=== PATIENT | male | born 1995 | race African-American/Black ===

== ENCOUNTER 2019-11-27 17:53 | Emergency (ER) | payer BC, SELFPAY ==
--- NOTE | 2019-11-27 20:38 | EDPHYS ---
Physician Documentation [facility] Name: Robbie Quiles Age: 24 yrs Sex: Male : 1995 Arrival Date: 11/27/2019 Time: 17:56 Bed 15 Private MD: ED Physician Gregory Osorio HPI: 11/26 20:03 This 24 yrs old Black Male presents to ER via Ambulatory with complaints of Headache. victor m 20:03 The patient complains of pain to the top of head, left frontal area, left side of the victor m back of head, right frontal area and right side of the back of head. The patient describes the headache as aching. Onset: The symptoms/episode began/occurred 3 day(s) ago. Associated signs and symptoms: The patient has no apparent associated signs or symptoms. Severity of symptoms: At its worst the pain was mild, in the emergency department the pain is unchanged. Headache History: The patient has had previous headaches and this one is similar to previous episodes. The symptoms are alleviated by nothing. the symptoms are aggravated by nothing. The patient has experienced similar episodes in the past, several times, hx of concussion, football injury, had swelling of the brain. Historical: - Allergies: 18:09 No Known Allergies; ph - Home Meds: 18:09 None [Active]; ph - PMHx: 18:09 None; ph - Immunization history:: Adult Immunizations unknown. - Social history:: Smoking status: Patient denies any tobacco usage or history of. Patient uses street drugs, marijuana. - Family history:: not pertinent. ROS: 20:03 Constitutional: Negative for fever, chills, and weight loss, Eyes: Negative for injury, victor m pain, redness, and discharge, ENT: Negative for injury, pain, and discharge, Neck: Negative for injury, pain, and swelling, Cardiovascular: Negative for chest pain, palpitations, and edema, Respiratory: Negative for shortness of breath, cough, wheezing, and pleuritic chest pain, Abdomen/GI: Negative for abdominal pain, nausea, vomiting, diarrhea, and constipation, Back: Negative for injury and pain, : Negative for injury, bleeding, discharge, and swelling, MS/Extremity: Negative for injury and deformity, Skin: Negative for injury, rash, and discoloration, Psych: Negative for depression, anxiety, suicide ideation, homicidal ideation, and hallucinations, Allergy/Immunology: Negative for hives, rash, and allergies, Endocrine: Negative for neck swelling, polydipsia, polyuria, polyphagia, and marked weight changes, Hematologic/Lymphatic: Negative for swollen nodes, abnormal bleeding, and unusual bruising. 20:03 Neuro: Positive for headache. Exam: 20:03 Constitutional: This is a well developed, well nourished patient who is awake, alert, victor m and in no acute distress. Head/Face: Normocephalic, atraumatic. Eyes: Pupils equal round and reactive to light, extra-ocular motions intact. Lids and lashes normal. Conjunctiva and sclera are non-icteric and not injected. Cornea within normal limits. Periorbital areas with no swelling, redness, or edema. ENT: Nares patent. No nasal discharge, no septal abnormalities noted. Tympanic membranes are normal and external auditory canals are clear. Oropharynx with no redness, swelling, or masses, exudates, or evidence of obstruction, uvula midline. Mucous membranes moist. Neck: Trachea midline, no thyromegaly or masses palpated, and no cervical lymphadenopathy. Supple, full range of motion without nuchal rigidity, or vertebral point tenderness. No Meningismus. Chest/axilla: Normal chest wall appearance and motion. Nontender with no deformity. No lesions are appreciated. Cardiovascular: Regular rate and rhythm with a normal S1 and S2. No gallops, murmurs, or rubs. Normal PMI, no JVD. No pulse deficits. Respiratory: Lungs have equal breath sounds bilaterally, clear to auscultation and percussion. No rales, rhonchi or wheezes noted. No increased work of breathing, no retractions or nasal flaring. Abdomen/GI: Soft, non-tender, with normal bowel sounds. No distension or tympany. No guarding or rebound. No evidence of tenderness throughout. Back: No spinal tenderness. No costovertebral tenderness. Full range of motion. Male : Normal genitalia with no discharge or lesions. Skin: Warm, dry with normal turgor. Normal color with no rashes, no lesions, and no evidence of cellulitis. MS/ Extremity: Pulses equal, no cyanosis. Neurovascular intact. Full, normal range of motion. Psych: Awake, alert, with orientation to person, place and time. Behavior, mood, and affect are within normal limits. 20:03 Neck: Exam negative for acute changes, ROM/movement: no acute changes, Meningeal signs: are not present, Kernig's sign is negative, Brudzinski's sign is negative. 20:03 Neuro: Exam negative for acute changes, Orientation: is normal, appropriate for stated age, no acute changes, Mentation: is normal, appropriate for stated age, no acute changes, Memory: is normal, appropriate for stated age, no acute changes, Cranial nerves: grossly normal, is grossly normal based on the patient's age, no acute changes, Cerebellar function: is grossly normal, is grossly normal based on the patient's age, no acute changes, Motor: is normal, is grossly normal based on the patient's age, no acute changes, moves all fours, Sensation: is normal, appropriate no acute changes, Gait: is steady, Deep tendon reflexes are 2+ (normal) in the bilateral brachioradialis, bicep, tricep and patellar and Achilles tendons, Babinski testing is normal, seizure activity, is not displayed by the patient. Vital Signs: 18:05 BP 149 / 89; Pulse 94; Resp 18; Temp 98.2; Pulse Ox 99% on R/A; Weight 180.08 kg; ph Height 6 ft. 6 in. (198.12 cm); Pain 6/10; 20:00 BP 131 / 79; Pulse 60; Resp 18; Pulse Ox 98% on R/A; wh 21:00 BP 127 / 76; Pulse 57; Resp 18; Pulse Ox 100% on R/A; wh 18:05 Body Mass Index 45.88 (180.08 kg, 198.12 cm) ph NIH Stroke Scale Scores: 20:03 NIHSS Score: 0 victor m [place] Coma Score: 20:07 Eye Response: spontaneous(4). Verbal Response: oriented(5). Motor Response: obeys [facility] commands(6). Total: 15. MDM: 19:10 Patient medically screened. [facility] 20:06 Data reviewed: vital signs, nurses notes, radiologic studies, CT scan. [facility] 20:07 Differential diagnosis: intracerebral hemorrhage, meningitis, neoplasm, subdural victor m hematoma, tension headache, traumatic injuries, vasomotor headache. Data interpreted: quality assurance monitor chassis: not applicable for this patient encounter. rate is 94 beats/min, Pulse oximetry: on room air is 99 %. Counseling: I had a detailed discussion with the patient and/or guardian regarding: the historical points, exam findings, and any diagnostic results supporting the discharge/admit diagnosis, radiology results, the need for outpatient follow up, for definitive care, a neurologist. Medication response: decreased pain. 20:10 ED course: explained results of ct and need for follow up, patient will and will return [facility] if symptoms worsen or persist. 11/26 20:03 Order name: CT Head Brain wo Cont victor m Administered Medications: 20:15 Drug: Tylenol 1000 mg Route: PO; wh 21:12 Follow up: Response: No adverse reaction Disposition: 11/27/19 20:38 Discharged to Home. Impression: Headache. - Condition is Stable. - Discharge Instructions: General Headache Without Cause, General Headache Without Cause, [id number]. - Prescriptions for Ibuprofen 600 mg Oral Tablet - take 1 tablet by ORAL route every 6 hours As needed take with food; 20 tablet. Zofran 4 mg Oral Tablet - take 1 tablet by ORAL route every 12 hours As needed; 20 tablet. - Medication Reconciliation Form, Thank You Letter, Antibiotic Education, Prescription Opioid Use form. - Follow up: Private Physician; When: 2 - 3 days; Reason: Recheck today's complaints, Continuance of care, Re-evaluation by your physician. Follow up: Leandro Jasso; When: 2 - 3 days; Reason: Recheck today's complaints, Re-evaluation by your physician. - Problem is new. - Symptoms have improved. NIH Stroke Scale - NIH Stroke Score Date: 11/27/2019 Time: 20:03 Total Score = 0 1a. Level of Consciousness (LOC) - 0(Alert) 1b. Level of Consciousness (LOC) (Year \T\ Age) - 0(Both) 1c. LOC Commands (Open \T\ Closes Eyes/Campground Attendant) - 0(Both) 2. Best Gaze (Lateral Gaze Paresis) - 0(Normal) 3. Visual Field Loss - 0(No visual loss) 4. Facial Palsy - 0(Normal) 5a. Left Arm: Motor (10-second hold) - 0(No drift) 5b. Right Arm: Motor (10-second hold) - 0(No drift) 6a. Left Leg: Motor (5-second hold - always test supine) - 0(No drift) 6b. Right Leg: Motor (5-second hold - always test supine) - 0(No drift) 7. Limb Ataxia (finger/nose \T\ heel/feldman - test with eyes open) - 0(Absent) 8. Sensory Loss (pinprick arms/legs/face) - 0(Normal) 9. Best Language: Aphasia (description/naming/reading) - 0(No aphasia) 10. Dysarthria (speech clarity - read or repeat words) - 0(Normal) 11. Extinction and Inattention (visual/tactile/auditory/spatial/personal) - 0(No abnormality) Initials: victor m Signatures: Dispatcher [employer] EDMS Gregory Osorio MD MD cha Hall, Patricia, RN RN Cipriano Matthews Corrections: (The following items were deleted from the chart) 21:13 20:38 11/27/2019 20:38 Discharged to Home. Impression: Headache. Condition is wh Stable. Discharge Instructions: General Headache Without Cause, General Headache Without Cause, [id number]. Prescriptions for Ibuprofen 600 mg Oral Tablet - take 1 tablet by ORAL route every 6 hours As needed take with food; 20 tablet, Zofran 4 mg Oral Tablet - take 1 tablet by ORAL route every 12 hours As needed; 20 tablet. and Forms are Medication Reconciliation Form, Thank You Letter, Antibiotic Education, Prescription Opioid Use. Follow up: Private Physician; When: 2 - 3 days; Reason: Recheck today's complaints, Continuance of care, Re-evaluation by your physician. Follow up: Leandro Jasso; When: 2 - 3 days; Reason: Recheck today's complaints, Re-evaluation by your physician. Problem is new. Symptoms have improved. victor m
--- NOTE | 2019-11-27 20:38 | ER ---
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 Coronavirus screen: Patient denies a cough. Patient denies shortness of breath or difficulty breathing. Patient denies measured and/or subjective temperature greater than 100.4F prior to today's visit. Patient denies travel on a cruise ship or to a country the [facility] currently lists as an affected area. Patient denies contact with known and/or suspected case of COVID-19. Ebola Screen: No symptoms or risks identified at this time. Initial Sepsis Screen: Does the patient meet any 2 criteria? No. Patient's initial sepsis screen is negative. Does the patient have a suspected source of infection? No. Patient's initial sepsis screen is negative. Risk Assessment: Do you want to hurt yourself or someone else? Patient reports no desire to harm self or others. Onset of symptoms was November 27, 2019. 18:05 Method Of Arrival: Ambulatory 18:05 Acuity: [place] 3 ph Triage Assessment: 18:10 Headache History: The patient has had previous headaches and this one is similar to bp previous episodes. General: Appears in no apparent distress. comfortable, Behavior is cooperative, appropriate for age, anxious. Pain: Complains of pain in head. Pain: Pain currently is 7 out of 10 on a pain scale. Pain began years ago. Also complains of no other associated symptoms. EENT: No deficits noted. Neuro: Reports headache. Cardiovascular: No deficits noted. Respiratory: No deficits noted. GI: No signs and/or symptoms were reported involving the gastrointestinal system. GI: GI: Reports nausea. : Derm: No deficits noted. Musculoskeletal: No deficits noted. Historical: - Allergies: 18:09 No Known Allergies; ph - Home Meds: 18:09 None [Active]; ph - PMHx: 18:09 None; ph - Immunization history:: Adult Immunizations unknown. - Social history:: Smoking status: Patient denies any tobacco usage or history of. Patient uses street drugs, marijuana. - Family history:: not pertinent. Screenin:38 Abuse screen: Denies threats or abuse. Denies injuries from another. Nutritional bp screening: No deficits noted. Tuberculosis screening: Possible symptoms: None. Fall Risk None identified. Assessment: 18:37 General: SEE TRIAGE NOTE. bp 19:30 Reassessment: Patient appears in no apparent distress at this time. Patient and/or family updated on plan of care and expected duration. Pain level reassessed. Patient is alert, oriented x 3, equal unlabored respirations, skin warm/dry/pink. Pain: Complains of pain in headache. 21:00 Reassessment: Patient appears in no apparent distress at this time. No changes from previously documented assessment. Patient and/or family updated on plan of care and expected duration. Pain level reassessed. Patient is alert, oriented x 3, equal unlabored respirations, skin warm/dry/pink. Vital Signs: 18:05 BP 149 / 89; Pulse 94; Resp 18; Temp 98.2; Pulse Ox 99% on R/A; Weight 180.08 kg; ph Height 6 ft. 6 in. (198.12 cm); Pain 6/10; 20:00 BP 131 / 79; Pulse 60; Resp 18; Pulse Ox 98% on R/A; wh 21:00 BP 127 / 76; Pulse 57; Resp 18; Pulse Ox 100% on R/A; wh 18:05 Body Mass Index 45.88 (180.08 kg, 198.12 cm) ph [place] Coma Score: 20:07 Eye Response: spontaneous(4). Verbal Response: oriented(5). Motor Response: obeys victor m commands(6). Total: 15. NIH Stroke Scale Scores: 20:03 NIHSS Score: 0 victor m ED Course: 17:56 Patient arrived in ED. as 18:09 Triage completed. ph 18:09 Arm band placed on Patient placed in waiting room, Patient notified of wait time. ph 18:13 Deonte Kim, RN is Primary Nurse. bp 18:39 Patient has correct armband on for positive identification. Bed in low position. Call bp light in reach. Side rails up X2. 19:10 Gregory Osorio MD is Attending Physician. victor m 20:15 CT Head Brain wo Cont In Process Unspecified. EDMS 20:37 Leandro Jasso MD is Referral Physician. victor m 21:12 No provider procedures requiring assistance completed. Patient did not have IV access during this emergency room visit. Administered Medications: 20:15 Drug: Tylenol 1000 mg Route: PO; 21:12 Follow up: Response: No adverse reaction Outcome: 20:38 Discharge ordered by . victor m 21:13 Discharged to home ambulatory. 21:13 Condition: stable 21:13 Discharge instructions given to patient, Instructed on discharge instructions, follow up and referral plans. medication usage, POC Demonstrated understanding of instructions, follow-up care, medications, POC Prescriptions given X 2. 21:13 Patient left the ED. NIH Stroke Scale - NIH Stroke Score Date: 11/27/2019 Time: 20:03 Total Score = 0 1a. Level of Consciousness (LOC) - 0(Alert) 1b. Level of Consciousness (LOC) (Year \\T\\ Age) - 0(Both) 1c. LOC Commands (Open \\T\\ Closes Eyes/Billing Coordinator) - 0(Both) 2. Best Gaze (Lateral Gaze Paresis) - 0(Normal) 3. Visual Field Loss - 0(No visual loss) 4. Facial Palsy - 0(Normal) 5a. Left Arm: Motor (10-second hold) - 0(No drift) 5b. Right Arm: Motor (10-second hold) - 0(No drift) 6a. Left Leg: Motor (5-second hold - always test supine) - 0(No drift) 6b. Right Leg: Motor (5-second hold - always test supine) - 0(No drift) 7. Limb Ataxia (finger/nose \\T\\ heel/feldman - test with eyes open) - 0(Absent) 8. Sensory Loss (pinprick arms/legs/face) - 0(Normal) 9. Best Language: Aphasia (description/naming/reading) - 0(No aphasia) 10. Dysarthria (speech clarity - read or repeat words) - 0(Normal) 11. Extinction and Inattention (visual/tactile/auditory/spatial/personal) - 0(No abnormality) Initials: victor m Signatures: Dispatcher [employer] Gregory Ogden MD MD cha Martinez, Amelia as Hall, Patricia, KELLI RN Cipriano Prabhakar Brian, RN RN bp
[2019-11-27] MEDS ORDERED: ACETAMINOPHEN 500 MG TAB ONE (20:41)
--- NOTE | 2019-11-27 20:41 | RAD REPORT ---
EXAM DESCRIPTION: CT - Head Brain Wo Cont - 11/27/2019 8:16 pm CLINICAL HISTORY: Headache COMPARISON: None. TECHNIQUE: Computed axial tomography of the head was obtained. IV contrast was not requested. All CT scans are performed using dose optimization technique as appropriate and may include automated exposure control or mA/KV adjustment according to patient size. FINDINGS: An intracranial bleed is not seen . The ventricles are normal in caliber. No extra-axial fluid collection is noted. Fluid within the sinuses/ mastoids is not seen. IMPRESSION: No acute intracranial abnormality is seen. If patient's symptoms persist MRI of the bra in would be recommended.
[2019-11-27 21:20] VITALS: TEMP 98.2
[2019-11-27 21:23] VITALS: BP 127/76; O2SAT 100
== END 2019-11-27 21:13 | disposition home or self-care (01) ==
LOC: ER 17:53
DX: R51 Headache (principal); R29.700 NIHSS score 0; F12.90 Cannabis use, unspecified, uncomplicated
CPT/HCPCS: 70450; 99283

== ENCOUNTER 2020-01-04 16:05 | Emergency (ER) | payer SELFPAY, OTHER ==
--- NOTE | 2020-01-04 16:14 | EDPHYS ---
Physician Documentation [facility] Name: Robbie Quiles Age: 24 yrs Sex: Male : 1995 Arrival Date: 01/04/2020 Time: 16:08 Bed 27 Private MD: ED Physician Adam Lea HPI: 01/03 16:30 This 24 yrs old Black Male presents to ER via Ambulatory with complaints of r/o covid. kb 16:31 The patient or guardian reports cough, flu symptoms, myalgias. Onset: The kb symptoms/episode began/occurred 6 day(s) ago. Severity of symptoms: At their worst the symptoms were moderate, in the emergency department the symptoms are unchanged. Modifying factors: The symptoms are alleviated by nothing, the symptoms are aggravated by nothing. Associated signs and symptoms: The patient has no apparent associated signs or symptoms. The patient has not experienced similar symptoms in the past. The patient has not recently seen a physician. Pt reports cough, inability to taste or smell, body aches, and fatigue that started on 12/29/19. Reports he was exposed to someone positive for covid. Historical: - Allergies: 16:11 No Known Allergies; sv - Immunization history:: Adult Immunizations. - Social history:: Smoking status: Patient denies any tobacco usage or history of. ROS: 16:30 Neck: Negative for injury, pain, and swelling, Cardiovascular: Negative for chest pain, kb palpitations, and edema, Abdomen/GI: Negative for abdominal pain, nausea, vomiting, diarrhea, and constipation, Back: Negative for injury and pain, MS/Extremity: Negative for injury and deformity, Skin: Negative for injury, rash, and discoloration, Neuro: Negative for headache, weakness, numbness, tingling, and seizure. 16:30 Constitutional: Positive for body aches, fatigue, malaise. 16:30 Respiratory: Positive for cough. Exam: 16:30 Constitutional: This is a well developed, well nourished patient who is awake, alert, kb and in no acute distress. Head/Face: Normocephalic, atraumatic. ENT: Nares patent. No nasal discharge, no septal abnormalities noted. Tympanic membranes are normal and external auditory canals are clear. Oropharynx with no redness, swelling, or masses, exudates, or evidence of obstruction, uvula midline. Mucous membranes moist. Neck: Trachea midline, no thyromegaly or masses palpated, and no cervical lymphadenopathy. Supple, full range of motion without nuchal rigidity, or vertebral point tenderness. No Meningismus. Chest/axilla: Normal chest wall appearance and motion. Nontender with no deformity. No lesions are appreciated. Cardiovascular: Regular rate and rhythm with a normal S1 and S2. No gallops, murmurs, or rubs. Normal PMI, no JVD. No pulse deficits. Respiratory: Lungs have equal breath sounds bilaterally, clear to auscultation and percussion. No rales, rhonchi or wheezes noted. No increased work of breathing, no retractions or nasal flaring. Abdomen/GI: Soft, non-tender, with normal bowel sounds. No distension or tympany. No guarding or rebound. No evidence of tenderness throughout. Skin: Warm, dry with normal turgor. Normal color with no rashes, no lesions, and no evidence of cellulitis. MS/ Extremity: Pulses equal, no cyanosis. Neurovascular intact. Full, normal range of motion. Neuro: Awake and alert, GCS 15, oriented to person, place, time, and situation. Cranial nerves II-XII grossly intact. Motor strength 5/5 in all extremities. Sensory grossly intact. Cerebellar exam normal. Normal gait. Vital Signs: 16:11 BP 159 / 70; Pulse 88; Resp 18; Temp 97.7; Pulse Ox 99% ; Weight 179.62 kg; Height 6 sv ft. 6 in. (198.12 cm); Pain 0/10; 16:11 Body Mass Index 45.76 (179.62 kg, 198.12 cm) sv MDM: 16:13 Patient medically screened. kb 16:30 Data reviewed: vital signs, nurses notes. Data interpreted: Pulse oximetry: on room air kb is 99 %. Interpretation: normal. Counseling: I had a detailed discussion with the patient and/or guardian regarding: the historical points, exam findings, and any diagnostic results supporting the discharge/admit diagnosis, the need for outpatient follow up, a family practitioner, to return to the emergency department if symptoms worsen or persist or if there are any questions or concerns that arise at home. 01/03 16:13 Order name: NANCY yojana Administered Medications: No medications were administered Disposition: 01/04/20 16:13 Discharged to Home. Impression: Acute upper respiratory infection, unspecified. - Condition is Stable. - Discharge Instructions: Viral Respiratory Infection, [id number], COVID-19. - Medication Reconciliation Form, Thank You Letter, Antibiotic Education, Prescription Opioid Use form. - Follow up: Emergency Department; When: As needed; Reason: Worsening of condition. Follow up: Private Physician; When: 2 - 3 days; Reason: Recheck today's complaints, Continuance of care, Re-evaluation by your physician. Addendum: 01/07/2020 16:30 Co-signature as Attending Physician, Adam Lea MD I agree with the assessment and k dr plan of care. Signatures: Dispatcher [employer] EDKirsty Terry, CECY-C EMPLOYMENT EDUCATIONAL COORD-Kacy Patel, RN RN Adam Aguilar MD MD [facility] Araceli Saldana RN RN ss Corrections: (The following items were deleted from the chart) 01/03 16:36 16:13 01/04/2020 16:13 Discharged to Home. Impression: Acute upper respiratory ss infection, unspecified. Condition is Stable. Forms are Medication Reconciliation Form, Thank You Letter, Antibiotic Education, Prescription Opioid Use. Follow up: Emergency Department; When: As needed; Reason: Worsening of condition. Follow up: Private Physician; When: 2 - 3 days; Reason: Recheck today's complaints, Continuance of care, Re-evaluation by your physician. kb
--- NOTE | 2020-01-04 16:14 | ER ---
Nurse's Notes [facility] Name: Robbie Quiles Age: 24 yrs Sex: Male : 1995 Arrival Date: 01/04/2020 Time: 16:08 Bed 27 Private MD: Diagnosis: Acute upper respiratory infection, unspecified Presentation: 01/03 16:09 Chief complaint: Patient states: Denies any symptoms at this time. Reports that he had sv loss of smell/taste, fatigue since 12/29/19. Reports he was exposed to a person that was COVID +. Coronavirus screen: Surgical mask placed on patient. Patient moved to private room, placed in contact and droplet isolation with eye protection until further assessment. Patient denies a cough. Patient denies shortness of breath or difficulty breathing. Patient denies measured and/or subjective temperature greater than 100.4F prior to today's visit. Patient denies travel on a cruise ship or to a country the [facility] currently lists as an affected area. Patient reports contact with known and/or suspected case of COVID-19. Ebola Screen: No symptoms or risks identified at this time. Risk Assessment: Do you want to hurt yourself or someone else? Patient reports no desire to harm self or others. Onset of symptoms was December 29, 2019. 16:09 Acuity: [place] 4 sv 16:11 Initial Sepsis Screen: Does the patient meet any 2 criteria? No. Patient's initial sv sepsis screen is negative. Does the patient have a suspected source of infection? No. Patient's initial sepsis screen is negative. 16:11 Method Of Arrival: Ambulatory sv Triage Assessment: 16:09 General: Appears in no apparent distress. comfortable, Behavior is calm, cooperative, sv appropriate for age. Pain: Denies pain. Neuro: Level of Consciousness is awake, alert, obeys commands, Oriented to person, place, time, situation, Gait is steady. Respiratory: Respiratory effort is even, unlabored. Historical: - Allergies: 16:11 No Known Allergies; sv - Immunization history:: Adult Immunizations. - Social history:: Smoking status: Patient denies any tobacco usage or history of. Screenin:35 Abuse screen: Denies threats or abuse. Denies injuries from another. Nutritional ss screening: No deficits noted. Tuberculosis screening: Never had TB. Fall Risk None identified. Assessment: 16:35 General: Appears in no apparent distress. comfortable. Neuro: Level of Consciousness is ss awake, alert, obeys commands, Oriented to person, place, time, situation. Cardiovascular: Capillary refill < 3 seconds is brisk. Respiratory: Airway is patent Respiratory effort is even, unlabored, Respiratory pattern is regular, symmetrical. GI: Patient currently denies diarrhea, nausea, vomiting. Derm: Skin is intact, is healthy with good turgor, Skin is pink, warm \T\ dry. normal. Vital Signs: 16:11 BP 159 / 70; Pulse 88; Resp 18; Temp 97.7; Pulse Ox 99% ; Weight 179.62 kg; Height 6 sv ft. 6 in. (198.12 cm); Pain 0/10; 16:11 Body Mass Index 45.76 (179.62 kg, 198.12 cm) sv ED Course: 16:08 Patient arrived in ED. as 16:09 [facility]irst[facility] Carm[facility]-C [facility]. kb 16:09 Adam Lea MD is Attending Physician. kb 16:09 Arm band placed on. sv 16:11 Triage completed. sv 16:35 Araceli Saldana, KELLI is Primary Nurse. ss 16:35 Patient has correct armband on for positive identification. Bed in low position. Call ss light in reach. 16:36 No provider procedures requiring assistance completed. Patient did not have IV access ss during this emergency room visit. Administered Medications: No medications were administered Outcome: 16:13 Discharge ordered by . kb 16:36 Discharged to home ambulatory. ss 16:36 Condition: good 16:36 Discharge instructions given to patient, Instructed on discharge instructions, follow up and referral plans. Demonstrated understanding of instructions, follow-up care. 16:36 Patient left the ED. ss Addendum: 01/09/2020 13:45 Addendum: COVID-19 Result: Negative result given to RN to notify pt. Unable to leave [facility] [employer] voice mail due to the number provided was either not a working number or has not been set up to take voice mails. 13:52 Addendum: COVID-19 Result: Negative result given to RN to notify pt. Contacted by: Mayela Tinajero RN. Signatures: Kirsty Carmen FNP-C FNP-Ckb Markwardt, Deana, KELLI [id number] Kacy Feng RN RN sv Martinez, Amelia as Smirch, Shelby, RN RN ss Corrections: (The following items were deleted from the chart) 01/03 16:20 16:09 Chief complaint: Patient states: Denies any symptoms at this time. Reports that sv he had loss of smell/taste, fatigue since 12/29/19. sv
[2020-01-04 16:47] VITALS: BP 159/70; TEMP 97.7; O2SAT 99
== END 2020-01-04 16:36 | disposition home or self-care (01) ==
LOC: ER 16:05
DX: J06.9 Acute upper respiratory infection, unspecified (principal); Z20.828 Contact with and (suspected) exposure to other viral communicable diseases
CPT/HCPCS: 99281; U0002